=== PATIENT | female | born 1975 | race American Indian/Alaskan Native ===

== ENCOUNTER 2016-10-28 18:48 | Emergency (ER) | payer SELFPAY ==
[2016-10-28 19:19] VITALS: BP 142/99
--- NOTE | 2016-10-28 19:19 | Emergency Department Report ---
Stated Complaint: CHEST/BACK/ RT SIDE PAIN Time Seen by Provider: 10/28/16 19:02 - HPI History of Present Illness: Patient here complaining of pain to right side, abdominal and chest pain. She reports that she took Advil for pain but is not helping. She says she was drinking heavily at a green party and the next day she started having abdominal and chest pain. She has a history of pancreatitis. - ROS Review of Systems: All Systems are negative unless stated in HPI above - Exam Vital Signs: Vital Signs 10/28/16 19:11 Temperature 98 F Pulse Rate 82 Respiratory 16 Rate Blood Pressure 142/99 Blood Pressure 142/99 [Left] O2 Sat by Pulse 100 Oximetry Physical Exam: General: A 41-year-old female well-nourished well-developed and nontoxic in appearance MSE screening note: Focused history and physical exam performed. Due to findings the following was ordered: ED Medical Decision Making - Medical Decision Making Medical decision making: Patient seen by provider in triage area. Appropriate protocol activated and patient to main ED to be seen by physician. ED Disposition for MSE Condition: Stable
[2016-10-28 20:04] LABS: Basophils % (Auto) 0.2 % (0.0-1.8); Eosinophils % (Auto) 1.2 % (0.0-4.3); Hematocrit 33.9 % (30.3-42.9); Hemoglobin 11.4 gm/dl (10.1-14.3); Mean Corpuscular HGB Conc 34 % (30-34); Mean Corpuscular Hemoglobin 29 pg (28-32); Mean Corpuscular Volume 86 fl (79-97); Platelet Count 274 K/mm3 (140-440); Red Blood Count 3.95 M/mm3 (3.65-5.03); Red Cell Distribution Width 13.6 % (13.2-15.2)
[2016-10-28 20:15] LABS: Alanine Aminotransferase 21 units/L (7-56); Albumin/Globulin Ratio 1.4 %; Alkaline Phosphatase 60 units/L (35-129); Anion Gap 15 mmol/L; BUN/Creatinine Ratio 17.14; Bilirubin,Total 0.2 mg/dL (0.1-1.2); Blood Urea Nitrogen 12 mg/dL (7-17); Calcium 9.1 mg/dL (8.4-10.2); Carbon Dioxide 26 mmol/L (22-30); Chloride 100.1 mmol/L (98-107); Glucose 96 mg/dL (65-100); Lipase 55 units/L (13-60); Potassium 3.4 mmol/L (3.6-5.0); Sodium 138 mmol/L (137-145); Total Protein 6.8 g/dL (6.3-8.2)
[2016-10-28 20:16] LABS: Creatine Kinase MB 3.5 ng/mL (0.0-4.0)
[2016-10-28 20:17] LABS: Creatine Kinase 392 units/L (30-135)
[2016-10-28 22:40] LABS: Bilirubin,Urine NEG (Negative); Blood,Urine NEG (Negative); Ketones,Urine NEG (Negative); Leukocyte Esterase,Urine NEG (Negative); Mucus,Urine FEW /HPF; Nitrite,Urine NEG (Negative); Protein,Urine <15 mg/dL mg/dL (Negative); Urobilinogen,Urine < 2.0 mg/dL (<2.0)
--- NOTE | 2016-10-29 10:53 | ED Elopement Review ---
ED Pt Elopement review - Results review Lab results: Laboratory Tests 10/28/16 10/28/16 10/28/16 19:36 19:36 19:36 WBC 5.0 RBC 3.95 Hgb 11.4 Hct 33.9 MCV 86 MCH 29 MCHC 34 RDW 13.6 Plt Count 274 Lymph % (Auto) 33.5 Fisher % (Auto) 5.9 Eos % (Auto) 1.2 Baso % (Auto) 0.2 Lymph # 1.7 Fisher # 0.3 Eos # 0.1 Baso # 0.0 Seg Neutrophils % 59.2 Seg Neutrophils # 3.0 Sodium 138 Potassium 3.4 L Chloride 100.1 Carbon Dioxide 26 Anion Gap 15 BUN 12 Creatinine 0.7 Estimated GFR > 60 BUN/Creatinine Ratio 17.14 Glucose 96 Calcium 9.1 Total Bilirubin 0.2 AST 23 ALT 21 Alkaline Phosphatase 60 Total Creatine Kinase 392 H CK-MB (CK-2) 3.5 CK-MB (CK-2) Rel Index 0.8 Troponin T < 0.010 Total Protein 6.8 Albumin 4.0 Albumin/Globulin Ratio 1.4 Lipase 55 HCG, Qual Urine Color Urine Turbidity Urine pH Ur Specific Santo Urine Protein Urine Glucose (UA) Urine Ketones Urine Blood Urine Nitrite Urine Bilirubin Urine Urobilinogen Ur Leukocyte Esterase Urine WBC (Auto) Urine RBC (Auto) U Epithel Cells (Auto) Urine Mucus 10/28/16 10/28/16 19:36 Unknown WBC RBC Hgb Hct MCV MCH MCHC RDW Plt Count Lymph % (Auto) Fisher % (Auto) Eos % (Auto) Baso % (Auto) Lymph # Fisher # Eos # Baso # Seg Neutrophils % Seg Neutrophils # Sodium Potassium Chloride Carbon Dioxide Anion Gap BUN Creatinine Estimated GFR BUN/Creatinine Ratio Glucose Calcium Total Bilirubin AST ALT Alkaline Phosphatase Total Creatine Kinase CK-MB (CK-2) CK-MB (CK-2) Rel Index Troponin T Total Protein Albumin Albumin/Globulin Ratio Lipase HCG, Qual Negative Urine Color Yellow Urine Turbidity Clear Urine pH 7.0 Ur Specific Santo 1.013 Urine Protein <15 mg/dl Urine Glucose (UA) Neg Urine Ketones Neg Urine Blood Neg Urine Nitrite Neg Urine Bilirubin Neg Urine Urobilinogen < 2.0 Ur Leukocyte Esterase Neg Urine WBC (Auto) 1.0 Urine RBC (Auto) 1.0 U Epithel Cells (Auto) 1.0 Urine Mucus Few - Call Back decision Pt Call Back Decision: No action required
== END 2016-10-29 03:29 | disposition left against medical advice (07) ==
LOC: ED 18:48
DX: R07.9 Chest pain, unspecified (principal); M54.9 Dorsalgia, unspecified; Z53.21 Procedure and treatment not carried out due to patient leaving prior to being seen by health care provider
CPT/HCPCS: 36415; 80053; 81001; 82550; 82553; 83690; 84484; 84703; 85025; 93005; 93010

== ENCOUNTER 2019-05-12 08:55 | Emergency (ER) | payer OTHER ==
[2019-05-12 09:13] VITALS: BP 124/67
[2019-05-12] MEDS ORDERED: KETOROLAC 30 MG/1 ML INJ IM ONE (10:46)
[2019-05-12] MEDS ORDERED: CYCLOBENZAPRINE 10 MG TAB PO ONE (10:46)
--- NOTE | 2019-05-12 10:49 | Emergency Department Report ---
ED Neck Pain HPI Chief Complaint: Neck Pain/Injury Stated Complaint: STIFF NECK/BACK PAIN/CANT MOVE Time Seen by Provider: 05/12/19 10:26 Duration: 1 Day Neck Pain Location: Posterior Neck Severity: severe Mechanism: Unsure Symptoms: Yes Pain with Movement, No Radiation to Left Upper Ext, No Radiation to Right Upper Ext, No Numbness, No Weakness, No Previous History Other History: This is a 44-year-old after [place] female who presents to the emergency room with posterior neck pain for one day. Patient reports pain is worse with movement. Patient states "it feels like someone is squeezing my neck". She denies a prior history. Patient states she is taking anti- inflammatories with no improvement of symptoms. She denies recent injury, numbness or tingling, weakness, swelling, bruising, fever, cough, sore throat. ED Review of Systems ROS: Stated complaint: STIFF NECK/BACK PAIN/CANT MOVE Other details as noted in HPI Constitutional: denies: chills, fever Respiratory: denies: cough, shortness of breath, wheezing Cardiovascular: denies: chest pain, palpitations Gastrointestinal: denies: abdominal pain, nausea, diarrhea Musculoskeletal: arthralgia (neck pain). 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 No distress. Alert and acting appropriately. HEENT: No Facial Pain, No Scalp Tenderness, No Contusion, No Abrasion, No Laceration Neck Pain: Yes Midline Tenderness (C3 through C5, no palpable spasm, no step- off, no deformity, no erythema or swelling), Yes Right Trapezius Tenderness, Yes Pain with Rotation Right, Yes Pain with Rotation Left, Yes Pain with Extension, Yes Pain with Flexion, Yes pain with R Lateral Flexion, Yes Pain with L Lateral Flexion, No Right Paraspinal Tenderness, No Left Trapezius Tenderness Chest: Yes Clear Lung Sounds, No Pain with Respirations Heart: Yes Regular, No Murmur Back: No Thoracic Tenderness, No Lumbar Tenderness Neuro: Yes Normal Reflexes, No Numbness, No Weakness, No Radicular Deficits ED Course Vital Signs 05/12/19 09:12 Temperature 97.7 F Pulse Rate 73 Respiratory 18 Rate Blood Pressure 124/67 O2 Sat by Pulse 96 Oximetry ED Medical Decision Making - Radiology Data Radiology results: report reviewed XR spine cervical 2-3V INDICATION / CLINICAL INFORMATION: neck pain. COMPARISON: None available. FINDINGS: BONES/JOINT(S): No vertebral fracture. No significant degenerative changes. SOFT TISSUES: No significant abnormality. ADDITIONAL FINDINGS: None. - Medical Decision Making Patient was examined by me. Patient is nontoxic appearing and stable. Vitals are stable. Obtained x-ray of C-spine with no acute radiographic findings. Given analgesics and muscle relaxant while in the ER. Physical findings susceptible of cervical muscle strain. Patient informed of results. Start Robaxin and ibuprofen for pain. Follow up with PCP or return to the ER with worsening symptoms. Patient discharged home in stable condition. Critical care attestation.: If time is entered above; I have spent that time in minutes in the direct care of this critically ill patient, excluding procedure time. ED Disposition Clinical Impression: Neck pain Cervical muscle strain Qualifiers: Encounter type: initial encounter Qualified Code(s): S16.1XXA - Strain of muscle, fascia and tendon at neck level, initial encounter Disposition: TO HOME OR SELFCARE Is pt being admited?: No Condition: Stable Instructions: Cervical Spine Strain (ED), Cervical Radiculopathy (ED), Neck Exercises (GEN) Additional Instructions: Rest Use ice or heat on affected area for 20 minutes and off for 2 hours. Take pain medication every 6-8 hours as needed for pain. Don't drive or operate heavy machinery while taking muscle relaxers because they may cause drowsiness. Follow up with Primary Care Provider in 2-3 days. Prescriptions: Ibuprofen [Motrin 800 MG tab] 800 mg PO Q8HR PRN #20 tablet PRN Reason: Pain , Severe (7-10) Methocarbamol [Robaxin] 500 mg PO TID PRN #15 tablet PRN Reason: Muscle Spasm Referrals: [facility] [place]Note 3] [Outside] - 3-5 Days [facility] [Outside] - 3-5 Days [facility] [place] [Outside] - 3-5 Days Forms: Work/School Release Form(ED) Time of Disposition: 11:44
--- NOTE | 2019-05-12 11:13 | XRay Report ---
XR spine cervical 2-3V INDICATION / CLINICAL INFORMATION: neck pain. COMPARISON: None available. FINDINGS: BONES/JOINT(S): No vertebral fracture. No significant degenerative changes. SOFT TISSUES: No significant abnormality. ADDITIONAL FINDINGS: None. Signer Name: Dane Bailey MD Signed: 05/12/2019 11:08 AM Workstation Name: [id number]
== END 2019-05-12 11:53 | disposition home or self-care (01) ==
LOC: ED 08:55
DX: S16.1XXA Strain of muscle, fascia and tendon at neck level, initial encounter (principal); F17.200 Nicotine dependence, unspecified, uncomplicated; Z88.8 Allergy status to other drugs, medicaments and biological substances; Z91.041 Radiographic dye allergy status; Z91.013 Allergy to seafood; X58.XXXA Exposure to other specified factors, initial encounter; Y93.89 Activity, other specified; Y92.89 Other specified places as the place of occurrence of the external cause; Y99.8 Other external cause status
CPT/HCPCS: 72040; 96372; 99283; J1885